=== PATIENT | female | born 1965 ===

== ENCOUNTER → 2021-08-11 | Emergency (ER) | payer OTHER ==
[~2021-08-11] VITALS: Ht 162.6 cm; Wt 65.8 kg
== END | disposition home or self-care (01) ==
LOC: ER 13:37
DX: S00.83XA Contusion of other part of head, initial encounter (principal); Y04.2XXA Assault by strike against or bumped into by another person, initial encounter; Y93.89 Activity, other specified; Y92.89 Other specified places as the place of occurrence of the external cause; R23.3 Spontaneous ecchymoses; M54.50 Low back pain, unspecified; G89.11 Acute pain due to trauma